=== PATIENT | female | born 1995 | race American Indian/Alaskan Native ===

== ENCOUNTER 2021-04-10 18:14 | Emergency (ER) | payer OTHER ==
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
== END 2021-04-10 21:28 | disposition home or self-care (01) ==
LOC: ED 18:14
CPT/HCPCS: 99282